=== PATIENT | male | born 1940 | race Caucasian/White ===

== ENCOUNTER 2021-01-21 17:24 | Inpatient (IN) | payer MEDICARE, BC ==
[~2021-01-21] VITALS: Ht 172.7 cm; Wt 87.0 kg
[~2021-01-21 17:24] MED LIST: ASPI-482 PO; EZET10TA20 PO; HYDR12.58 PO; NIAC500T PO; QUIN40TA16 PO
[2021-01-21] MEDS ORDERED: MULT-245 PO (19:44)
[2021-01-21 19:51] VITALS: BP 142/67
[2021-01-21] MEDS ORDERED: MECLIZINE HCL 12.5 MG TABLET. PO PRN (20:45)
[2021-01-21] MEDS ORDERED: LABETALOL 20 MG/4 ML DISP.SYRIN. IVP PRN (20:45)
[2021-01-21] MEDS ORDERED: ASPIRIN 325 MG TABLET PO ONE (20:45)
[2021-01-21] MEDS ORDERED: ATORVASTATIN CALCIUM 40 MG TABLET. PO SCH (21:00)
[2021-01-21 21:17] VITALS: BP 125/74
[2021-01-21 21:18] VITALS: BP 119/74
--- NOTE | 2021-01-21 21:49 | NUR ---
Transferred from [facility] via [facility] with Dx CVA. A/O x 4 on arrival. , Silvia, , at bedside on admission. Denies pain. Admits to feelings of Dizzy. Describes it as having been spun around in circles. Ambulated in room with standby assist. Steady gait. Moves all extremities without difficulty. Speech clear. Face symmetrical. NIH done at bedside with this RN and Charge Nurse. NIH score 0. Swallow intact. Spoke to Dr Munoz. Gave patient 325mg ASA PO and Lipitor 40mg PO as ordered. Applied SCDs. Lipid panel ordered for in the morning. Neuro consult placed. Left message with Dr Ochoa's answer service. Orders in computer for PT/OT/SPEECH consults.
[2021-01-21 22:37] VITALS: BP 135/74
[2021-01-21 22:43] VITALS: BP 141/85
[2021-01-21] MEDS ORDERED: SODIUM CHLORIDE 0.65% NASAL SPRAY 45ML BOTTLE. NS PRN (23:45)
[2021-01-22] VITALS (7 sets, daily range): BP systolic 126–149; BP diastolic 64–89
[2021-01-22 08:14] LABS: CHOLESTEROL/HDL RATIO 3.9
--- NOTE | 2021-01-22 11:19 | RAD ---
EXAM: Brain MRI without contrast. HISTORY: Vertigo. TECHNIQUE: Multiplanar, multisequence magnetic resonance imaging of the brain was performed without c ontrast. COMPARISON: 07/08/2015 FINDINGS: There is no restricted diffusion to suggest acute or subacute infarction. There is no susce ptibility effect to suggest hemorrhage. There is no mass effect or midline shift. There is no hydroce phalus. There are few small focal areas of signal change within the cerebral white matter. There is c erebral volume loss. There is an incidental left choroid fissure cyst. There is a tiny focus of encep halomalacia within the right cerebellum, likely due to chronic infarction. The orbits are unremarkable. There is right maxillary sinus mucosal thickening and there is a left ma xillary sinus mucous retention cyst. There is minimal fluid within the right mastoid air cells. There is an absent flow void within the distal right vertebral artery at the level of the skull base. This reconstitutes within its distal most aspect. There is no calvarial lesion. There is degenerative severiano nge involving the visualized cervical spine. IMPRESSION: 1. Absent flow void within the distal right vertebral artery level of the skull base, likely due to o cclusion or low flow. There is reconstitution of this vessel at the near the basilar artery. This is likely chronic given the absence of an acute infarct. 2. Bilateral cerebral white matter changes, likely due to chronic small vessel disease in a patient o f this age. 3. 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 4. Cerebral volume loss. Electronically signed by: Lisa Beasley MD (01/22/2021 11:17 AM) [id number]
--- NOTE | 2021-01-22 11:39 | PDOC2 ---
NEUROLOGY CONSULT Date of Service DOS: DATE: 01/22/21 TIME: 11:39 Reason for Consult Reason for Consult: Vertigo Referring Physician Referring Physician: Dr. Gordillo Source Source: Chart review, Patient History of Present Illness History of Present Illness The patient is a 80-year-old right-handed male who woke up yesterday morning with a feeling of dizziness. He describes vertigo with the room moving on him. He describes oscillopsia. There was no dysarthria, dysphagia, diplopia, numbness, weakness, headache, or cognitive change. He does have longstanding tinnitus. There is no prior history of stroke, seizure, or head injury. He did not respond to meclizine in the [facility] emergency department and, without consulting neurology, it was decided to transfer him here. Past Medical History Cardiovascular: HTN, Hyperlipidemia Musculoskeletal: Osteoarthritis Past Surgical History Past Surgical History: Total knee replacement (Right knee), Other (Bilateral carpal tunnel, skin cancer) Family History Family History: Cancer, CVA Social History Social History , patel, no tobacco, rare alcohol Current Medications Current Medications Current Medications Aspirin (Karen Aspirin) 325 mg 1X ONCE PO Last administered on 01/21/21at 21:10; Start 01/21/21 at 20:45; Stop 01/21/21 at 20:46; Status DC Meclizine HCl (Antivert) 25 mg PRN Q8HRS PRN PO DIZZINESS; Start 01/21/21 at 20:45 Labetalol HCl (Normodyne Iv Push) 10 mg PRN Q10MIN PRN IVP HYPERTENSION; Start 01/21/21 at 20:45 Atorvastatin Calcium (Lipitor) 40 mg QHS PO Last administered on 01/21/21at 21:10; Start 01/21/21 at 21:00 Sodium Chloride (Saline Mist Nasal) 1 mary PRN Q1HR PRN NS NASAL CONGESTION Last administered on 01/22/21at 00:26; Start 01/21/21 at 23:45 Active Scripts Active Reported Multi Vitamin Daily (Multivitamin) 1 Each Tablet 1 Each PO DAILY Niaspan (Niacin) 500 Mg Tab.er.24h 500 Mg PO HS Quinapril Hcl 40 Mg Tablet 40 Mg PO DAILY Aspir 81 (Aspirin) 81 Mg Tablet.dr 81 Mg PO QODAY Zetia (Ezetimibe) 10 Mg Tablet 10 Mg PO DAILY Allergies Allergies: Coded Allergies: No Known Drug Allergies (Unverified , 07/08/15) ROS Review of System Negative for fever, chills, weight loss, shortness of breath, chest pain, indigestion, hematochezia, melena, and dysuria. Full 14-point review of systems is negative. Physical Exam Physical Examination General: Well-developed, well-nourished white male in no acute distress HEENT: Normocephalic andatraumatic. Tympanic membranes clear.Temporal arteriespulsatile and nontender. Neck: Supple without bruit, no meningismus Musculoskeletal: Stability:see neurologic. Gait exam:see neurologic. Tone:see neurologic.Strength:see neurologic. Neurological: Mental Status:intact, orientation, memory, attention span/concentration, language, fund of knowledge normal. Cranial Nerves:Pupils equal and reactive to light, extraocular movements areintact, visual christian are full to confrontation. Facial sensation is normal. There is no facial asymmetry. Vestibulo-ocular reflex is intact. Palate elevates and tongue protrudes in midline. All other cranial related problems are negative except as mentioned before.Reflexes:2+ and symmetric with flexor plantar responses. Motor:5/5 strength with normal tone and bulk. Coordination:Finger-nose finger and abyp-gx-vwqd testing are normal. Rapid alternating movements and fine finger movements are intact. Gait:Normal, including tandem. Sensory:Normal pinprick, vibration, light touch, proprioception. Vitals VITALS Vital Signs Date Time Temp Pulse Resp B/P (MAP) Pulse Ox O2 Delivery O2 Flow Rate FiO2 01/22/21 08:10 96 145/83 (103) 01/22/21 08:00 Room Air 01/22/21 07:00 97.8 22 95 97.8 Labs Labs Laboratory Tests Test 01/22/21 06:50 Triglycerides Level 81 mg/dL (0-150) Cholesterol Level 178 mg/dL (0-200) LDL Cholesterol, Calculated 116 mg/dL (0-100) VLDL Cholesterol, Calculated 16 mg/dL (0-40) Non-HDL Cholesterol Calculated 132 mg/dL (0-129) HDL Cholesterol 46 mg/dL (40-60) Cholesterol/HDL Ratio 3.9 Laboratory Tests Test 01/22/21 06:50 Triglycerides Level 81 mg/dL (0-150) Cholesterol Level 178 mg/dL (0-200) LDL Cholesterol, Calculated 116 mg/dL (0-100) VLDL Cholesterol, Calculated 16 mg/dL (0-40) Non-HDL Cholesterol Calculated 132 mg/dL (0-129) HDL Cholesterol 46 mg/dL (40-60) Cholesterol/HDL Ratio 3.9 Images Images Brain MRI without contrast. HISTORY: Vertigo. TECHNIQUE: Multiplanar, multisequence magnetic resonance imaging of the brain was performed without contrast. COMPARISON: 07/08/2015 FINDINGS: There is no restricted diffusion to suggest acute or subacute infarction. There is no susceptibility effect to suggest hemorrhage. There is no mass effect or midline shift. There is no hydrocephalus. There are few small focal areas of signal change within the cerebral white matter. There is cerebral volume loss. There is an incidental left choroid fissure cyst. There is a tiny focus of encephalomalacia within the right cerebellum, likely due to chronic infarction. The orbits are unremarkable. There is right maxillary sinus mucosal thickening and there is a left maxillary sinus mucous retention cyst. There is minimal fluid within the right mastoid air cells. There is an absent flow void within the distal right vertebral artery at the level of the skull base. This reconstitutes within its distal most aspect. There is no calvarial lesion. There is degenerative change involving the visualized cervical spine. IMPRESSION: 1. Absent flow void within the distal right vertebral artery level of the skull base, likely due to occlusion or low flow. There is reconstitution of this vessel at the near the basilar artery. This is likely chronic given the absence of an acute infarct. 2. Bilateral cerebral white matter changes, likely due to chronic small vessel disease in a patient of this age. 3. 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 4. Cerebral volume loss. CT head, 01/21, [facility]: There is no acute or subacute extra-axial or intraparenchymal hemorrhage. There is no mass effect or midline shift. There is no hydrocephalus. There are areas of decreased attenuation within the cerebral white matter, nonspecific and likely related to chronic small vessel disease. There is cerebral volume loss. There is an incidental left choroid fissure cyst. There is right maxillary sinus wall thickening and mucosal thickening due to chronic sinusitis. The orbits and mastoid air cells are unremarkable. There is no calvarial lesion. IMPRESSION: 1. No acute intracranial finding. Note is made that MRI is more sensitive for acute infarction. 2. Bilateral cerebral white matter changes, most commonly due to chronic small vessel disease in a patient of this age. Assessment/Plan Assessment/Plan Impression: Peripheral vertigo, no evidence of stroke either on bedside examination or on the MRI which has already been done. 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 Recommendations: MRI of the brain, already done He does not need the full stroke pathway His symptoms have resolved, no further neurological interventions are required. He has taken aspirin in the past, caused nosebleeds, he is willing to take 81 mg daily Intolerance of statin in the past, continue Zetia and niacin. Okay for discharge Follow-up with neurology as needed. Thank you for letting me help with the patient's care. DYLAN MEDRANO MD Jan 22, 2021 11:39
--- NOTE | 2021-01-22 12:15 | NUR ---
SS following for discharge planning. SS reviewed pt chart and discussed with pt RN. Pt is from home with spouse and is currently on room air. PT/OT/ST ordered. PT/OT recommended home independent. Pt had Brain MRI today. Discharge plan is to home when medically ready. SS will continue to follow for discharge planning.
--- NOTE | 2021-01-22 12:17 | PDOC1 ---
History and Physical Date of Admission Date of Admission DATE: 01/22/21 TIME: 12:19 Identification/Chief Complaint Chief Complaint dizziness History of Present Illness History of Present Illness There was no dysarthria, dysphagia, diplopia, numbness, weakness, headache, or cognitive change. He does have longstanding tinnitus. There is no prior history of stroke, seizure, or head injury. He did not respond to meclizine in the [facility] emergency department Past Medical History Past Medical History Past Medical History Cardiovascular: HTN, Hyperlipidemia Musculoskeletal: Osteoarthritis Past Surgical History Past Surgical History: Total knee replacement (Right knee), Other (Bilateral carpal tunnel, skin cancer) Family History Family History: Cancer, CVA, htn Social History Social History , patel, no tobacco, rare alcohol Cardiovascular: HTN, Hyperlipidemia Musculoskeletal: Osteoarthritis Past Surgical History Past Surgical History: Total knee replacement (Right knee), Other (Bilateral carpal tunnel, skin cancer) Family History Family History: Hypertension Social History Smoke: No ALCOHOL: none Drugs: None Current Medications Current Medications Current Medications Aspirin (Karen Aspirin) 325 mg 1X ONCE PO Last administered on 01/21/21at 21:10; Start 01/21/21 at 20:45; Stop 01/21/21 at 20:46; Status DC Meclizine HCl (Antivert) 25 mg PRN Q8HRS PRN PO DIZZINESS; Start 01/21/21 at 20:45 Labetalol HCl (Normodyne Iv Push) 10 mg PRN Q10MIN PRN IVP HYPERTENSION; Start 01/21/21 at 20:45 Atorvastatin Calcium (Lipitor) 40 mg QHS PO Last administered on 01/21/21at 21:10; Start 01/21/21 at 21:00 Sodium Chloride (Saline Mist Nasal) 1 mary PRN Q1HR PRN NS NASAL CONGESTION Last administered on 01/22/21at 00:26; Start 01/21/21 at 23:45 Active Scripts Active Reported Multi Vitamin Daily (Multivitamin) 1 Each Tablet 1 Each PO DAILY Niaspan (Niacin) 500 Mg Tab.er.24h 500 Mg PO HS Quinapril Hcl 40 Mg Tablet 40 Mg PO DAILY Aspir 81 (Aspirin) 81 Mg Tablet.dr 81 Mg PO QODAY Zetia (Ezetimibe) 10 Mg Tablet 10 Mg PO DAILY Allergies Allergies: Coded Allergies: No Known Drug Allergies (Unverified , 07/08/15) ROS General: No: Chills, Night Sweats, Fatigue, Malaise, Appetite, Other PSYCHOLOGICAL ROS: No: Anxiety, Behavioral Disorder, Concentration difficultie, Decreased libido, Depression, Disorientation, Hallucinations, Hostility, Irritablity, Memory difficulties, Mood Swings, Obsessive thoughts, Physical abuse, Sexual abuse, Sleep disturbances, Suicidal ideation, Other Eyes: No Blurry vision, No Decreased vision, No Double vision, No Dry eyes, No Excessive tearing, No Eye Pain, No Itchy Eyes, No Loss of vision, No Photophobia, No Scotomata, No Uses contacts, No Uses glasses, No Other HEENT: No: Heacaches, Visual Changes, Hearing change, Nasal congestion, Nasal discharge, Oral lesions, Sinus pain, Sore Throat, Epistaxis, Sneezing, Snoring, Tinnitus, Vertigo, Vocal changes, Other ALLERGY AND IMMUNOLOGY: No: Hives, Insect Bite Sensitivity, Itchy/Watery Eyes, Nasal Congestion, Post Nasal Drip, Seasonal Allergies, Other Hematological and Lymphatic: No: Bleeding Problems, Blood Clots, Blood Transfusions, Brusing, Night Sweats, Pallor, Swollen Lymph Nodes, Other ENDOCRINE: No: Breast Changes, Galactorrhea, Hair Pattern Changes, Hot Flashes, Malaise/lethargy, Mood Swings, Palpitations, Polydipsia/polyuria, Skin Changes, Temperature Intolerance, Unexpected Weight Changes, Other Breast: No New/Changing Breast Lumps, No Nipple changes, No Nipple discharge, No Other Respiratory: No: Cough, Hemoptysis, Orthopnea, Pleuritic Pain, Shortness of breath, SOB with excertion, Sputum Changes, Stridor, Tachypnea, Wheezing, Other Cardiovascular: No Chest Pain, No Palpitations, No Orthopnea, No Paroxysmal Noc. Dyspnea, No Edema, No Lt Headedness, No Other Gastrointestinal: No Nausea, No Vomiting, No Abdominal Pain, No Diarrhea, No Constipation, No Melena, No Hematochezia, No Other Genitourinary: No Dysuria, No Frequency, No Incontinence, No Hematuria, No Retention, No Discharge, No Urgency, No Pain, No Flank Pain, No Other, No , No , No , No , No , No , No Musculoskeletal: No Gait Disturbance, No Joint Pain, No Joint Stiffness, No Joint Swelling, No Muscle Pain, No Muscular Weakness, No Pain In:, No Swelling In:, No Other Neurological: Yes Dizziness; No Behavorial Changes, No Bowel/Bladder ControlChng, No Confusion, No Gait Disturbance, No Headaches, No Impaired Coord/balance, No Memory Loss, No Numbness/Tingling, No Seizures, No Speech Problems, No Tremors, No Visual Changes, No Weakness, No Other Skin: No Dry Skin, No Eczema, No Hair Changes, No Lumps, No Mole Changes, No Mottling, No Nail Changes, No Pruritus, No Rash, No Skin Lesion Changes, No Other, No Acne Physical Exam General: Alert, Oriented X3, Cooperative, No acute distress HEENT: PERRLA Lungs: Clear to auscultation, Normal air movement Heart: RRR, no gallops, no murmurs Breasts: Not examined Abdomen: Normal bowel sounds, Soft, No tenderness, No hepatosplenomegaly, No masses Rectal Exam: not examined PELVIC: Examination not indicated Extremities: No cyanosis Skin: No breakdown, No significant lesion Neuro: Normal speech, Strength at 5/5 X4 ext, Sensation intact, Cranial nerves 3-12 NL Psych/Mental Status: Mental status NL, Mood NL Vitals Vitals Vital Signs Date Time Temp Pulse Resp B/P (MAP) Pulse Ox O2 Delivery O2 Flow Rate FiO2 01/22/21 11:00 98.0 86 18 133/70 (91) 96 Room Air 98.0 Labs Labs Laboratory Tests Test 01/22/21 06:50 Triglycerides Level 81 mg/dL (0-150) Cholesterol Level 178 mg/dL (0-200) LDL Cholesterol, Calculated 116 mg/dL (0-100) VLDL Cholesterol, Calculated 16 mg/dL (0-40) Non-HDL Cholesterol Calculated 132 mg/dL (0-129) HDL Cholesterol 46 mg/dL (40-60) Cholesterol/HDL Ratio 3.9 Laboratory Tests Test 01/22/21 06:50 Triglycerides Level 81 mg/dL (0-150) Cholesterol Level 178 mg/dL (0-200) LDL Cholesterol, Calculated 116 mg/dL (0-100) VLDL Cholesterol, Calculated 16 mg/dL (0-40) Non-HDL Cholesterol Calculated 132 mg/dL (0-129) HDL Cholesterol 46 mg/dL (40-60) Cholesterol/HDL Ratio 3.9 Images Images EXAM: Brain MRI without contrast. HISTORY: Vertigo. TECHNIQUE: Multiplanar, multisequence magnetic resonance imaging of the brain was performed without contrast. COMPARISON: 07/08/2015 FINDINGS: There is no restricted diffusion to suggest acute or subacute infarction. There is no susceptibility effect to suggest hemorrhage. There is no mass effect or midline shift. There is no hydrocephalus. There are few small focal areas of signal change within the cerebral white matter. There is cerebral volume loss. There is an incidental left choroid fissure cyst. There is a tiny focus of encephalomalacia within the right cerebellum, likely due to chronic infarction. The orbits are unremarkable. There is right maxillary sinus mucosal thickening and there is a left maxillary sinus mucous retention cyst. There is minimal fluid within the right mastoid air cells. There is an absent flow void within the distal right vertebral artery at the level of the skull base. This reconstitutes within its distal most aspect. There is no calvarial lesion. There is degenerative change involving the visualized cervical spine. IMPRESSION: 1. Absent flow void within the distal right vertebral artery level of the skull base, likely due to occlusion or low flow. There is reconstitution of this vessel at the near the basilar artery. This is likely chronic given the absence of an acute infarct. 2. Bilateral cerebral white matter changes, likely due to chronic small vessel disease in a patient of this age. 3. 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 4. Cerebral volume loss. 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 Cerebral volume loss. plan aspirin 81 mg daily Zetia and niacin. Okay for discharge neurology consulted mri head reviewed Justifications for Admission Other Justification JOSEPH HERNANDEZ MD Jan 22, 2021 12:17
[2021-01-22] MEDS ORDERED: ACETAMINOPHEN 325 MG TABLET. PO PRN (12:45)
[2021-01-22] MEDS ORDERED: ALBUTEROL SULFATE 2.5 MG/3 ML NEBU. NEB PRN (12:45)
[2021-01-22] MEDS ORDERED: DOCUSATE SODIUM 100 MG CAPSULE. PO PRN (12:45)
[2021-01-22] MEDS ORDERED: ONDANSETRON PF 4 MG/2 ML VIAL. IV PRN (12:45)
[2021-01-22] MEDS ORDERED: ENOXAPARIN 40 MG/0.4 ML SYRINGE. SQ SCH (12:45)
[2021-01-22] MEDS ORDERED: guaiFENesin ORAL 200 MG/10 ML LIQUID. PO PRN (12:45)
--- NOTE | 2021-01-22 13:40 | RAD ---
EXAM: Carotid Doppler sonogram. HISTORY: Cerebral infarction. Atherosclerosis. TECHNIQUE: Gutierrez scale and color Doppler sonographic evaluation of the neck with spectral waveform eber lysis was performed and static images are submitted for review. FINDINGS: There is mild atherosclerotic plaque involving the carotid bifurcations The peak systolic velocity within the right common carotid artery is 111 cm/sec. The peak systolic ve locity within the right internal carotid artery is 79 cm/sec and the end diastolic velocity within th e right internal carotid artery is 16 cm/sec. The right ICA/CCA ratio is 0.85. The peak systolic velocity within the left common carotid artery is 96 cm/sec. The peak systolic [place] within the left internal carotid artery is 77 cm/sec and the end diastolic velocity within the l eft internal carotid artery is 27 cm/sec. The left ICA/CCA ratio is 1.0. There is normal antegrade flow within both vertebral arteries. IMPRESSION: No Doppler evidence of greater than 50 percent stenosis involving the internal carotid arteries. PQRS Compliance Statement - Stenosis calculations for CT, MR and conventional angiography are based u jessie measurement of the distal ICA diameter in accordance with the NASCET methodology. Stenosis calcu lations for carotid ultrasound studies are derived from validated velocity criteria which are known t o correlate with the NASCET methodology. Electronically signed by: Lisa Beasley MD (01/22/2021 1:37 PM) [id number]
--- NOTE | 2021-01-22 13:46 | HP ---
ADMIT DATE: 01/21/2021 ADMISSION HISTORY , observation and d/c same day CHIEF COMPLAINT: Dizziness. HISTORY OF PRESENT ILLNESS: This 80-year-old pleasant male was transferred from [facility] ER with complaints of dizziness. He does have a long history of tinnitus, no prior history of known stroke or head injury. He was seen by the ER doctor there and then transferred here. He states that he feels better today. He has been seen by Neurology and cleared for discharge. His would like a carotid Doppler study, however, his MRI shows a very tiny small cerebellar infarct, which is old. PAST MEDICAL HISTORY: Significant for hypertension, hyperlipidemia, previous knee replacement, bilateral carpal tunnel syndrome. FAMILY HISTORY: Positive for cancer and hypertension. 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 No tobacco use, rare alcohol use. REVIEW OF SYSTEMS: Denies shortness of breath, chest pain. His dizziness is better today. Denies numbness or tingling. Above normal symptoms for carpal tunnel. Denies exertional angina. Denies vomiting, melena, hematochezia, weight change, dysuria, polyuria, polydipsia. A 14-point review of systems otherwise negative. PHYSICAL EXAMINATION: GENERAL: He was alert, oriented white male, in no acute distress. NECK: Supple. HEENT: Throat and pharynx are clear. NEUROLOGIC: Cranial nerves 2-12 are grossly intact. He moves all extremities well. 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 Extraocular muscles are intact. Muscles of mastication are symmetric bilaterally. Speech is normal without slurred speech. EXTREMITIES: Without cyanosis. SKIN: Without significant lesion. He is cooperative, alert and oriented. CARDIOVASCULAR: Regular rate and rhythm without murmur, S3 or S4. ABDOMEN: Soft, obese without tenderness. Bowel sounds are normal. LABORATORY DATA: His cholesterol is 178, LDL cholesterol 116. MRI of the brain shows no evidence of acute or subacute infarction. No mass effect, no hydrocephalus. There is an absent flow in the distal right vertebral artery at the level of the skull base, likely due to old occlusion. There is reconstitution of the basilar artery. This is likely chronic. There is a tiny chronic infarct within the right cerebellum and the cerebellar volume loss consistent with age. ASSESSMENT: 1. Vertigo. 2. Possible transient ischemic attack. 3. 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 4. Cerebellar volume loss secondary to age. 5. Obesity. PLAN: Continue aspirin 81 mg daily. Continue Zetia, niacin. He has been cleared for discharge per Neurology. MRI of the head was reviewed. Total time spent with the patient exam, chart review, 65 minutes, greater than 50% of time was spent with the patient exam, chart review, the patient care, coordination and we will await carotid Doppler study today. He will see his primary care doctor in 2-3 weeks and call with any symptoms, which brought him to seek medical attention. d/c home today, see pcp next week JOSEPH HERNANDEZ MD DR: CECILIA/nikolay JOB#: [id number] / [id number] FARAZ
[2021-01-22] MEDS ORDERED: DOCU-153 PO (14:48)
[2021-01-22] MEDS ORDERED: MECL12.582 PO (14:48)
[2021-01-22] MEDS ORDERED: ATOR40TA59 PO (14:48)
--- NOTE | 2021-01-22 15:53 | NUR ---
Discharge Note: MARIO ARREGUNI Discharge instructions and discharge home medications reviewed with Patient and a copy given. All questions have been answered and understanding verbalized. The following instructions and handouts were given: Atorvastatin, Docusate, Meclizine, Stroke prevention, Dizziness, hypertension. Patient discharged to home with self care via and private vehicle. IV out and monitor off, placed at nursing station.
== END 2021-01-22 15:56 | disposition home or self-care (01) | DRG 69 ==
LOC: 2 SOUTH 19:35
PROVIDERS: ADMIT Internal Medicine; ATTEND Internal Medicine
DX: G45.9 Transient cerebral ischemic attack, unspecified (principal); E66.9 Obesity, unspecified; E78.5 Hyperlipidemia, unspecified; I10 Essential (primary) hypertension; I73.9 Peripheral vascular disease, unspecified; J32.0 Chronic maxillary sinusitis; M19.90 Unspecified osteoarthritis, unspecified site; Z96.651 Presence of right artificial knee joint; G56.03 Carpal tunnel syndrome, bilateral upper limbs; Z79.82 Long term (current) use of aspirin; Z82.3 Family history of stroke; Z82.49 Family history of ischemic heart disease and other diseases of the circulatory system; Z85.828 Personal history of other malignant neoplasm of skin; Z68.29 Body mass index [BMI] 29.0-29.9, adult
CPT/HCPCS: 36415; 70551; 80061; 93880; J1650; 92610-GN; G0378

== ENCOUNTER 2022-03-09 10:22 | Inpatient (IN) | payer MEDICARE, BC ==
[2022-03-09] VITALS (8 sets, daily range): BP systolic 110–137; BP diastolic 66–83
[~2022-03-09] VITALS: Ht 172.7 cm; Wt 85.0 kg
[~2022-03-09 10:22] MED LIST changes: +ATOR40TA59 PO; +DOCU-148 PO; +MECL12.582 PO; +MULT-245 PO
[2022-03-09] MEDS ORDERED: UBID100C26 PO (11:05)
[2022-03-09] MEDS ORDERED: NITR0.4T24 SL (11:05)
[2022-03-09] MEDS ORDERED: PANT40TA77 PO (11:05)
[2022-03-09] MEDS ORDERED: [UNRECOGNIZED DRUG - CODE] PO (11:05)
[2022-03-09] MEDS ORDERED: SUCR1TAB35 PO (11:05)
[2022-03-09] MEDS ORDERED: MECL-75 PO (11:05)
[2022-03-09 11:16] LABS: HEMATOCRIT 46.5 % (39.0-53.0); HEMOGLOBIN 15.8 g/dL (13.0-17.5); RED BLOOD COUNT 5.2 x10^6/uL (4.30-5.70); RED CELL DISTRIBUTION WIDTH 13.5 % (11.5-14.5); WHITE BLOOD COUNT 5.5 x10^3/uL (4.0-11.0)
[2022-03-09 11:26] LABS: CALCIUM 9.2 mg/dL (8.5-10.1); CREATININE 1.1 mg/dL (0.7-1.3); GFR 64.4; POTASSIUM 4.1 mmol/L (3.5-5.1)
[2022-03-09 11:28] LABS: PROTHROMBIN TIME PATIENT 13.4 SEC (11.7-14.0)
[2022-03-09] MEDS ORDERED: LIDOCAINE 1% PF 2 ML VIAL. ONE ×2 (12:36→12:44)
[2022-03-09] MEDS ORDERED: IODIXANOL 320 MG/ML 100 ML VIAL. ONE (12:36)
[2022-03-09] MEDS ORDERED: NITROGLYCERIN 200 MCG/2 ML SYRINGE FOR CATH/VASC LAB. ONE ×2 (12:41→12:47)
[2022-03-09] MEDS ORDERED: VERAPAMIL 5 MG/2 ML VIAL. ONE ×2 (12:41→12:44)
[2022-03-09] MEDS ORDERED: HEPARIN for IV BOLUS 10,000 UNIT/10 ML VIAL. ONE (12:41)
[2022-03-09] MEDS ORDERED: MIDAZOLAM HCL/PF 2 MG/2 ML VIAL. ONE (12:41)
[2022-03-09] MEDS ORDERED: fentaNYL PF VIAL 100 MCG/2 ML VIAL ONE (12:41)
[2022-03-09] MEDS ORDERED: LIDOCAINE 1% Multi-Dose 20 ML VIAL. ONE (12:43)
[2022-03-09] MEDS: IV 1/2 NORMAL SALINE 1,000 ML IV SCH ×2 (12:50→23:30)
[2022-03-09] MEDS ORDERED: LIDOCAINE 1% PF 2 ML VIAL. INJ ONE (13:00)
[2022-03-09] MEDS ORDERED: MIDAZOLAM HCL/PF 2 MG/2 ML VIAL. IV ONE (13:00)
[2022-03-09] MEDS ORDERED: NITROGLYCERIN 200 MCG/2 ML SYRINGE FOR CATH/VASC LAB. IART ONE (13:00)
[2022-03-09] MEDS ORDERED: fentaNYL PF VIAL 100 MCG/2 ML VIAL IV ONE (13:00)
[2022-03-09] MEDS ORDERED: IODIXANOL 320 MG/ML 100 ML VIAL. IART ONE (13:00)
[2022-03-09] MEDS ORDERED: CONTRAST GIVEN. MC PRN (13:00)
[2022-03-09] MEDS ORDERED: HEPARIN for IV BOLUS 10,000 UNIT/10 ML VIAL. IART ONE (13:00)
[2022-03-09] MEDS ORDERED: VERAPAMIL 5 MG/2 ML VIAL. IART ONE (13:00)
--- NOTE | 2022-03-09 13:20 | PDOC ---
MODERATE SEDATION ASSESSMENT RISKS/ALTERNATIVES Risks/Alternatives Risks and alternatives of this type of sedation and procedure discussed with: RISK/ALTERNATIVES: Patient H & P ON CHART H & P H & P on chart and reviewed for co-morbid conditions and appropriate labs. H&P ON CHART: Yes STATUS PREG STATUS ASSESSED: N/A MEDS/ALLERGIES REVIEWED Meds/Allergies Reviewed Medications and Allergies including time and route of recently administered narcotics and sedatives. MEDS/ALLERGIES REVIEWED: Yes ASA RATING ASA RATING: II AIRWAY ASSESSMENT Airway Assessment Airway patency, oral function limitations, presence of caps, crowns, dentures, partials, and ability to extend neck assessed. AIRWAY ASSESSMENT: Yes MALLAMPATI SCORE MALLAMPATI SCORE: II PRE-SEDATION ASSESSMENT PRE-SEDATION ASSESSMENT: Yes GREER ROBERTS MD Mar 09, 2022 13:19
[2022-03-09] MEDS ORDERED: CLOPIDOGREL BISULFATE 75 MG TABLET PO ONE (13:30)
[2022-03-09] MEDS ORDERED: CLOPIDOGREL BISULFATE 75 MG TABLET ONE ×2 (14:13→14:18)
--- NOTE | 2022-03-09 14:31 | NUR ---
Nicole RN gave report to Sissy GARRIDO on . Patient had left heart catheterization with Dr. Hendricks today and will require CSI for an intervention tomorrow. Patient had procedure done through right radial site and TR band in place with 9cc air and armboard in place. Patient ate lunch and took 300mg po Plavix before being transported to room 665. at bedside with patient and no problems noted.
--- NOTE | 2022-03-09 14:55 | CARD ---
MR#: [id number] Date of Study: 03/09/2022 Ordering Physician: GREER HENDRICKS, Referring Physician: GREER HENDRICKS Tech: RT Miley(R) APPROVED REPORT Technologist: Nette Barcenas RT(R) Nurse: Quyen Lopez RN Procedure(s) performed: Left heart catheterization, selective coronary angiography via right transrad ial approach MODERATE SEDATION TIME: 30 MINUTES FLUORO TIME: 4.1 MIN DOSE: 62 GYCM2 CONTRAST: 80CC VISI INDICATION The indication(s) include : unstable angina . [facility] Clinical Frailty Scale [facility] Clinical Frailty Scale: Managing Well Heart Failure Heart Failure: No CASE TECHNIQUE IV conscious sedation was used throughout procedure with appropriate monitoring and was performed in the presence of a registered nurse who was an independent trained observer other than the physician p erforming the procedure. During this case, Fluoroscopy and low osmolar contrast were used for imaging . Specimen(s) Removed: No Estimated Blood loss: 15 cc's. PROCEDURE NARRATIVE After explaining the risks, benefits and alternative options, informed consent was obtained from ap ent. Patient was brought to the cardiac Manual Lathe Machinist and right wrist was prepped and draped in the usual fashion after confirming a positive modified Gama's test. Arterial access was obtained in the righ t radial artery and a 6 Wolof sheath was inserted. 6 Wolof Austin catheter was used to perform kenny ective angiography of the left and right coronary arteries. LVEDP and transaortic gradients were fanny sured. Patient tolerated the procedure well. Hemostasis was achieved using TR band. There were no immediate complications. The following findings were noted. FINDINGS 1. Hemodynamics: Left ventricular end-diastolic pressure of 7 mmHg. No pullback gradient across the aortic valve. 2. Coronary angiography: a. The left main coronary artery arose from the left sinus of Valsalva, gave rise to the left anteri or descending and left circumflex arteries and did not show any significant stenosis. b. The left anterior descending artery showed a calcified and eccentric 90% stenosis involving mid s egment. c. The left circumflex artery did not show any significant stenosis. d. The right coronary artery was a large and dominant vessel arising from the right sinus of Valsalv a that showed heavily calcified 90% stenosis involving the proximal segment and another heavily calci fied 95 to 99% stenosis in the midsegment. Conclusion Severe two-vessel coronary artery disease involving left anterior descending and right coronary arter ies as described above. Recommendations Due to heavy calcification, we will plan for orbital atherectomy/PCI/stent placement, probably with t emporary transvenous pacemaker support. Signed by : Greer Hendricks, Electronically Approved : 03/09/2022 14:55:01
--- NOTE | 2022-03-09 16:45 | CARD ---
MR#: [id number] Date of Study: 03/09/2022 Ordering Physician: GREER HENDRICKS, Referring Physician: GREER HENDRICKS, Tech: Dee Mayberry RDCS,T APPROVED REPORT EXAM: Two-dimensional and M-mode echocardiogram with Doppler and color Doppler. Other Information Quality : AverageHR: 86bpm Rhythm : NNSR INDICATION Cardiac Disease: CAD Angia 2D DIMENSIONS Left Atrium(2D)3.2 (1.6-4.0cm)IVSd1.3 (0.7-1.1cm) Aortic Root(2D)3.2 (2.0-3.7cm)LVDd4.3 (3.9-5.9cm) LVOT Diameter2.1 (1.8-2.4cm)PWd1.1 (0.7-1.1cm) LVDs3.5 (2.5-4.0cm)FS (%) 20.1 % SV35.3 ml Aortic Valve AoV Peak Bentley.120.3cm/sAoV VTI24.3cm AO Peak GR.5.8mmHgAO Mean GR.4mmHg Tricuspid Valve TR P. Kpmjbnfz85np/sTR Peak Gr.4mmHg Pulmonary Vein S1 Lvszegab06.0cm/sD2 Qomeajsy00.4cm/s PVa [id number] LEFT VENTRICLE The left ventricle is normal size. There is borderline to mild concentric left ventricular hypertroph y. Normal left ventricular systolic function. The Ejection Fraction is 55%. No regional wall motion a bnormalities noted. Transmitral Doppler flow pattern is Grade I-abnormal relaxation pattern. No left ventricle thrombus noted on this study. There is no ventricular septal defect visualized. There is no left ventricular aneurysm. There is no mass noted in the left ventricle. RIGHT VENTRICLE The right ventricle is normal size. There is normal right ventricular wall thickness. The right ventr icular systolic function is normal. ATRIA The left atrium size is normal. The right atrium size is normal. The interatrial septum is intact wit h no evidence for an atrial septal defect or patent foramen ovale as noted on 2-D or Doppler imaging. AORTIC VALVE The aortic valve is normal in structure and function. No aortic regurgitation is present. There is no aortic valvular stenosis. There is no aortic valvular vegetation. MITRAL VALVE The mitral valve is normal in structure and function. There is no evidence of mitral valve prolapse. There is no mitral valve stenosis. There is no mitral valve regurgitation noted. TRICUSPID VALVE The tricuspid valve is normal in structure and function. Trace tricuspid valve regurgitation. There i s no tricuspid valve prolapse or vegetation. There is no tricuspid valve stenosis. PULMONIC VALVE The pulmonic valve is not well visualized. There is no pulmonic valvular regurgitation. There is no p ulmonic valvular stenosis. GREAT VESSELS The aortic root is normal in size. The ascending aorta is normal in size. The pulmonary artery is nor mal. The IVC is normal in size and collapses >50% with inspiration. PERICARDIAL EFFUSION There is no pleural effusion. There is no evidence of significant pericardial effusion. Critical Notification Critical Value: No <Conclusion> Technically difficult study. Normal left ventricular systolic function. The Ejection Fraction is 55%. Trace tricuspid valve regurgitation. There is no evidence of significant pericardial effusion. Signed by : Greer Hendricks, Electronically Approved : 03/09/2022 16:45:04
[2022-03-09] MEDS ORDERED: fentaNYL PF VIAL 100 MCG/2 ML VIAL IVP PRN (23:15)
[2022-03-09] MEDS ORDERED: HEPARIN for IV BOLUS 10,000 UNIT/10 ML VIAL. IV PRN (23:15)
[2022-03-09] MEDS ORDERED: HEPARIN 25,000UTS/250ML PREMIX 250 ML IV PRN (23:15)
--- NOTE | 2022-03-09 23:17 | NUR ---
PT C/O CHEST PRESSURE, DR [place] NOTIFIED, NEW ORDERS RECEIVED, SEE ORDERS, BP- 118/83, P-83 WILL CONT TO MONITOR PT STATUS AND SAFETY. PMRN
[2022-03-09] MEDS ORDERED: ANTI-COAG MONITOR BY PHARMACY. MC PRN (23:30)
[2022-03-10] VITALS (7 sets, daily range): BP systolic 111–137; BP diastolic 63–91
--- NOTE | 2022-03-10 | EKG ---
[facility] [address] [place] [address] Test Date: 2022-03-09 Test Time: 23:54:17 Pat Name: MARIO ARREGUIN Department: Room: [facility] Gender: M Acetylene Burner: KRISSY : 1940 Requested By: [place] Order Number: [id number] Reading MD: Hussein Masters Measurements Intervals [place] Rate: 80 P: 31 IL: 208 QRS: -16 QRSD: 70 T: 11 QT: 360 QTc: 419 Interpretive Statements SINUS RHYTHM LEFTWARD AXIS Electronically Signed On 03-11-2022 16:47:20 CDT by Hussein Masters
[2022-03-10 06:22] LABS: HEMATOCRIT 45.6 % (39.0-53.0); HEMOGLOBIN 15.5 g/dL (13.0-17.5); RED BLOOD COUNT 5.06 x10^6/uL (4.30-5.70); RED CELL DISTRIBUTION WIDTH 13.5 % (11.5-14.5); WHITE BLOOD COUNT 6.1 x10^3/uL (4.0-11.0)
[2022-03-10] MEDS ORDERED: ASPIRIN ENTERIC COATED 325 MG TABLET.DR. PO SCH (08:00)
[2022-03-10] MEDS ORDERED: CLOPIDOGREL BISULFATE 75 MG TABLET PO SCH (08:00)
[2022-03-10] MEDS: IV 1/2 NORMAL SALINE 1,000 ML IV SCH (09:30)
[2022-03-10] MEDS ORDERED: LIDOCAINE 1% Multi-Dose 20 ML VIAL. ONE (10:00)
[2022-03-10] MEDS ORDERED: IODIXANOL 320 MG/ML 100 ML VIAL. ONE ×2 (11:10→13:41)
[2022-03-10] MEDS ORDERED: BIVALIRUDIN 250 MG VIAL. IVP ONE ×4 (11:12→12:45)
[2022-03-10] MEDS ORDERED: fentaNYL PF VIAL 100 MCG/2 ML VIAL ONE ×2 (11:12→13:33)
[2022-03-10] MEDS ORDERED: MIDAZOLAM HCL/PF 5 MG/5 ML VIAL. ONE (11:12)
[2022-03-10] MEDS ORDERED: diphenhydrAMINE 50 MG/ML VIAL ONE (11:36)
[2022-03-10] MEDS ORDERED: diphenhydrAMINE 50 MG/ML VIAL IVP ONE (12:00)
[2022-03-10] MEDS ORDERED: MIDAZOLAM HCL/PF 5 MG/5 ML VIAL. IV ONE (12:00)
[2022-03-10] MEDS ORDERED: IODIXANOL 320 MG/ML 100 ML VIAL. IART ONE (12:00)
[2022-03-10] MEDS ORDERED: fentaNYL PF VIAL 100 MCG/2 ML VIAL IV ONE (12:00)
[2022-03-10] MEDS ORDERED: LIDOCAINE 1% Multi-Dose 20 ML VIAL. INJ ONE (12:00)
[2022-03-10] MEDS ORDERED: NITROGLYCERIN 200 MCG/2 ML SYRINGE FOR CATH/VASC LAB. ONE (13:06)
[2022-03-10] MEDS ORDERED: NITROGLYCERIN 200 MCG/2 ML SYRINGE FOR CATH/VASC LAB. ICAR ONE (13:15)
[2022-03-10] MEDS ORDERED: ASPIRIN 325 MG TABLET PO ONE (14:00)
[2022-03-10] MEDS ORDERED: ASPIRIN 325 MG TABLET ONE (14:00)
[2022-03-10] MEDS ORDERED: CLOPIDOGREL BISULFATE 75 MG TABLET PO ONE (14:00)
[2022-03-10] MEDS ORDERED: CLOPIDOGREL BISULFATE 75 MG TABLET ONE (14:00)
--- NOTE | 2022-03-10 16:04 | NUR ---
SS following for discharge planning. SS reviewed pt chart and discussed with pt RN. Pt is from home with spouse and is currently on room air. Cardiology following. Pt had heart cath on 03/09/2022. SS will continue to follow for discharge planning.
[2022-03-11 03:09] VITALS: BP 119/64
[2022-03-11 07:00] VITALS: BP 125/73
--- NOTE | 2022-03-11 08:49 | CARD ---
MR#: [id number] Date of Study: 03/10/2022 Ordering Physician: GREER HENDRICKS, Referring Physician: GREER HENDRICKS, Tech: RT Tomasa(R) APPROVED REPORT Technologist: RT Tomasa(R) Nurse: Nicole Moreno RN Procedure(s) performed: 1. Left heart catheterization and selective coronary angiography 2. Successful complex orbital atherectomy/PCI/drug-eluting stent placement to left anterior descendi ng and right coronary arteries 3. Insertion of temporary transvenous pacemaker with removal at the end of procedure FLUORO TIME:65.2 MIN DOSE: 183 Gycm2 Contrast:183ml Mod Sed:169 MIN INDICATION The indication(s) include : 81-year-old male presented with unstable angina and underwent cardiac cat heterization on 03/09/2022 that showed heavily calcified 90% stenosis involving left anterior descendi ng artery and heavily calcified 90% stenosis involving the proximal segment and 95 to 99% stenosis in volving the mid segment of right coronary artery. He presented today for complex orbital atherectomy/ PCI/drug-eluting stent placement.. [facility] Clinical Frailty Scale [facility] Clinical Frailty Scale: Managing Well Heart Failure Heart Failure: No CASE TECHNIQUE IV conscious sedation was used throughout procedure with appropriate monitoring and was performed in the presence of a registered nurse who was an independent trained observer other than the physician p erforming the procedure. During this case, Fluoroscopy and low osmolar contrast were used for imaging . Specimen(s) Removed: No Estimated Blood loss: 15 cc's. PROCEDURE NARRATIVE After explaining the risk, benefits and alternative options, informed consent was obtained from patie nt. Patient was brought to the cardiac Solvent Mixer and his right groin was prepped and draped in the us ual fashion. 20 cc of 2% lidocaine was infiltrated to the skin and subcutaneous tissues for local an esthesia. Arterial and venous accesses were obtained in the right common femoral artery and vein res pectively and 6 and 5 Martiniquais sheaths inserted. A temporary transvenous pacemaker was then advanced t hrough the 5 Martiniquais venous sheath and the tip was positioned in the right ventricular apex for backup pacing. 6 Martiniquais XB 3.5 guide catheter was then advanced through the arterial sheath, the left main coronary artery engaged and selective angiography was performed that confirmed the previously described 90% ca lcified stenosis in the midsegment of left anterior descending artery. This was crossed with a 0.014 inch run-through guidewire which was then exchanged over a 1.5 x 12 mm [employer] Emerge ball oon to the Viper wire. Multiple orbital atherectomy passes were then performed within the calcified lesion in the mid segment of LAD using CSI diamondback 1.25 coronary orbital atherectomy catheter. T his was then dilated with a 2.5 x 12 mm sapphire pro balloon. The lesion was then successfully treat ed with a 2.5 x 12 mm resolute Travis drug-eluting stent. Follow-up angiography showed resolution of t he lesion with JULIO-3 distal flow. The right coronary artery was then engaged with a 6 Martiniquais AL 0.75 guide catheter after initial attem pts to engage this with AL-1 were unsuccessful. Attempts to cross the proximal and mid segment lesio ns with the run-through guidewire were unsuccessful. These were finally crossed with a 0.014 inch Ch oice PT guidewire with backup support from the 1.5 x 12 mm balloon. Attempts to advance any balloons for guidewire exchange were unsuccessful due to heavy calcification. A Corsair catheter was then salgado ccessfully advanced across the lesions and the guidewire was exchanged to the Viper wire. Multiple o rbital atherectomy passes were then performed within the lesions in the mid and proximal segments of right coronary artery using the CSI 1.25 diamondback coronary orbital atherectomy catheter. Attempts to advance balloons across the mid segment lesion were again unsuccessful. A telescope inner cathet er was then advanced to the guide catheter for better backup support and then we were able to advance a 2.5 x 12 mm Euphora balloon across the lesions. Both the lesions were predilated with this balloo n following which the mid segment lesion was treated with a 3.0 x 18 mm resolute Calvin drug-eluting st ent. The proximal segment lesion was treated with a 4.0 x 15 mm resolute Travis drug-eluting stent. T his was then postdilated with a 4.5 x 12 mm [employer] NC Emerge noncompliant balloon. Follow -up angiography showed resolution of the lesions with good distal flow. Since patient remained hemodynamically stable, the temporary transvenous pacer wire was successfully removed. Hemostasis was then achieved using Angio-Seal and manual compression. Patient tolerated th e procedure well. There were no immediate complications. JULIO Flow JULIO Flow (Pre-Intervention): JULIO-3 JULIO Flow (Post-Intervention): JULIO-3 JULIO Flow JULIO Flow (Pre-Intervention): JULIO-1 JULIO Flow (Post-Intervention): JULIO-3 Conclusion 1. Severe two-vessel coronary artery disease involving left anterior descending and right coronary a rteries 2. Successful complex orbital atherectomy/PCI/drug-eluting stent placement to the left anterior desc ending and right coronary arteries 3. Insertion of temporary transvenous pacemaker with removal at the end of procedure Recommendations 1. Aspirin 325 mg daily for 1 month followed by 81 mg daily 2. Plavix 75 mg daily 3. Cardiovascular risk factor modification Signed by : Greer Hendricks, Electronically Approved : 03/11/2022 08:48:37
[2022-03-11 11:00] VITALS: BP 119/73
[2022-03-11 11:50] LABS: CALCIUM 8.8 mg/dL (8.5-10.1); CREATININE 1.2 mg/dL (0.7-1.3); GFR 58.3; POTASSIUM 3.8 mmol/L (3.5-5.1)
[2022-03-11] MEDS ORDERED: CLOP75TA PO (12:01)
[2022-03-11] MEDS ORDERED: ASPI325T11 PO (12:01)
--- NOTE | 2022-03-11 12:04 | DISCH ---
DISCHARGE INSTRUCTIONS Condition on Discharge Condition on Discharge: Stable Activity After Discharge Activity Instructions for Disc: Activity as tolerated Bathing Instructions: No Tub Bath until see (for 1 week) Lifting Instructions after Dis: No heavy lifting, No pulling or pushing, Do not lift >10 pounds Driving Instructions after Dis: Do not drive (for 5-7 days ) Weight Bearing Status after Di: Full weight bearing, As tolerated Diet after Discharge Diet after Discharge: Cardiac Diet Texture: Regular Checks after Discharge Checks after discharge: Check blood press - daily Contacting the DRRodolfo after DC Call your doctor for: Concerns you may have Treatment/Equipment after DC Adaptive Equipment Issued: None THAD ARAUZ APRN Mar 11, 2022 12:04
--- NOTE | 2022-03-11 12:05 | PDOC3 ---
Discharge Summary Visit Information Date of Admission: Mar 09, 2022 Date of Discharge: Mar 11, 2022 Admitting Diagnosis: Untable angina Admitting Diagnosis Comment: Unstable angina Hypertension Hyperlipidemia Final Diagnosis CAD Hypertension Hyperlipidemia Brief Hospital Course Allergies Allergies Coded Allergies Type Severity Reaction Last Updated Verified Itmrnex-SVJ-[id number] Reductase Inhibitor Allergy Intermediate cramping all over 03/09/22 Yes acetaminophen Allergy Intermediate BURNING OF THROAT 03/10/22 Yes Vital Signs Vital Signs Date Time Temp Pulse Resp B/P (MAP) Pulse Ox O2 Delivery O2 Flow Rate FiO2 03/11/22 11:00 97.9 83 16 119/73 (88) 94 Room Air 97.9 03/10/22 14:09 2.0 Lab Results Laboratory Tests Test 03/09/22 23:50 03/10/22 05:55 03/11/22 11:10 Troponin I High Sensitivity 11 ng/L (4-75) White Blood Count 6.1 x10^3/uL (4.0-11.0) Red Blood Count 5.06 x10^6/uL (4.30-5.70) Hemoglobin 15.5 g/dL (13.0-17.5) Hematocrit 45.6 % (39.0-53.0) Mean Corpuscular Volume 90 fL (79-100) Mean Corpuscular Hemoglobin 31 pg (25-35) Mean Corpuscular Hemoglobin Concent 34 g/dL (31-37) Red Cell Distribution Width 13.5 % (11.5-14.5) Platelet Count 215 x10^3/uL (140-400) Heparin Anti-Xa Act, Unfractionated 0.26 IU/mL (0.30-0.70) Sodium Level 136 mmol/L (136-145) Potassium Level 3.8 mmol/L (3.5-5.1) Chloride Level 102 mmol/L (98-107) Carbon Dioxide Level 26 mmol/L (21-32) Anion Gap 8 (6-14) Blood Urea Nitrogen 20 mg/dL (8-26) Creatinine 1.2 mg/dL (0.7-1.3) Estimated GFR (Cockcroft-Gault) 58.3 Glucose Level 102 mg/dL (70-99) Calcium Level 8.8 mg/dL (8.5-10.1) Laboratory Tests Test 03/11/22 11:10 Sodium Level 136 mmol/L (136-145) Potassium Level 3.8 mmol/L (3.5-5.1) Chloride Level 102 mmol/L (98-107) Carbon Dioxide Level 26 mmol/L (21-32) Anion Gap 8 (6-14) Blood Urea Nitrogen 20 mg/dL (8-26) Creatinine 1.2 mg/dL (0.7-1.3) Estimated GFR (Cockcroft-Gault) 58.3 Glucose Level 102 mg/dL (70-99) Calcium Level 8.8 mg/dL (8.5-10.1) Brief Hospital Course Mr. Davis is a 81 old male who presented for cardiac catheterization due to unstable angina. Left heart catheterization on 03/09/22 revealed severe two- vessel coronary artery disease involving left anterior descending and right coronary arteries with heavy calcifications. Due to heavy calcification, orbital atherectomy was required. Patient returned to the catheter finisher and inspector the following day and underwent successful complex orbital atherectomy/PCI/drug-eluting stent placement to the left anterior descending and right coronary arteries. Temporary transvenous pacemaker was inserted, with removal at the end of procedure. Patient tolerated procedure well and was monitored overnight without complications. Discharge instructions were reviewed. Patient seen and examined. Agree with BUSINESS SUPPORT COORDINATOR's assessment and plan s/p complex orbital atherectomy to PCI/STEVE to LAD and RCA in the setting of [place], stable and CP free Tele without any arrhythmias LVF normal on 2D echo Continue DAPT and current secondary prevention measures Follow up as scheduled Assessment Assessment Alert and oriented. NAD. Lungs CTA. Right groin and right radial arteriotomy sites were soft and clean. No hematoma present. Bilateral neurovascular status was intact. No LE edema. Discharge Information Condition at Discharge: Stable Disposition/Orders: D/C to Home Scheduled Ascorbic Acid (Vitamin C With Negar Hips) 1,000 Mg Tablet, 1,000 MG PO DAILY for rx, (Reported) Entered as Reported by: JOSHUA STYLES on 03/09/22 110 Last Action: New Order on 03/09/22 110 by JOSHUA STYLES Aspirin (Aspirin Ec) 325 Mg Tablet., 1 TAB PO DAILY for CAD for 30 Days, #30 Ref 0 Take 325mg daily 1 month then 81 mg thereafter. Prescribed by: THAD ARAUZ APRN on 03/11/22 1201 Clopidogrel Bisulfate (Clopidogrel) 75 Mg Tablet, 1 TAB PO DAILY for CAD for 30 Days, #30 Ref 3 Prescribed by: THAD ARAUZ APRN on 03/11/22 1201 Ezetimibe (Zetia) 10 Mg Tablet, 10 MG PO DAILY, (Reported) Entered as Reported by: Merly Richmond on 07/08/151357 Last Action: Reviewed on 03/09/221104 by JOSHUA STYLES Meclizine Hcl (Meclizine Hcl) 25 Mg Tablet, 1 TAB PO PRN TID for rx, #30 (Reported) Entered as Reported by: JOSHUA STYLES on 03/09/221104 Last Action: New Order on 03/09/221104 by JOSHUA STYLES Multivitamin (Multi Vitamin Daily) 1 Each Tablet, 1 EACH PO DAILY for supplement, (Reported) Entered as Reported by: BEATRIZ [place] on 01/21/211943 Last Action: Reviewed on 03/09/221104 by JOSHUA STYLES Niacin (Niaspan) 500 Mg Tab.er.24h, 500 MG PO HS, (Reported) Entered as Reported by: Merly Richmond on 07/08/151357 Last Action: Reviewed on 03/09/221104 by JOSHUA STYLES Pantoprazole Sodium (Pantoprazole Sodium ) 40 Mg Tablet.dr, 40 MG PO DAILYAC for GERD, (Reported) Entered as Reported by: JOSHUA STYLES on 03/09/221104 Last Action: New Order on 03/09/221104 by JOSHUA STYLES Quinapril Hcl (Quinapril Hcl) 40 Mg Tablet, 40 MG PO DAILY for blood pressure, (Reported) Entered as Reported by: Merly Richmond on 07/08/151357 Last Action: Reviewed on 03/09/221104 by JOSHUA STYLES Sucralfate (Carafate) 1 Gm Tablet, 1 TAB PO QID for rx for 30 Days, #120 Ref 0 (Reported) Entered as Reported by: JOSHUA STYLES on 03/09/221104 Last Action: New Order on 03/09/221104 by JOSHUA STYLES Ubidecarenone (Coq-10) 100 Mg Capsule, 200 MG PO DAILY for rx, (Reported) Entered as Reported by: JOSHUA STYLES on 03/09/221104 Last Action: New Order on 03/09/221104 by JOSHUA STYLES Scheduled PRN Nitroglycerin (Nitrostat) 0.4 Mg Tab.subl, 0.4 MG SL PRN Q5MIN PRN for CHEST PAIN, (Reported) Entered as Reported by: JOSHUA STYLES on 03/09/221104 Last Action: New Order on 03/09/221104 by JOSHUA STYLES Discontinued Medications Aspirin (Aspir 81) 81 Mg Tablet.dr, 81 MG PO QODAY for heart healthy, (Reported) Entered as Reported by: Merly Richmond on 07/08/15 2838 Last Action: Reviewed on 03/09/221104 by JOSHUA STYLES Patient Instructions Patient Instructions GENERAL INSTRUCTIONS: 1. Your dressing should be removed prior to leaving the hospital. 2. It is OK to shower the day after your procedure. 3. If you received stents, be sure to carry your stent information card with you in your wallet/purse at all times. 4. Call the office immediately at [phone] if you notice any fever or if there is redness, worsening tenderness/pain, increased bruising, or drainage from the puncture site. 5. Should you have bleeding from the site, lie down immediately & put pressure on the site. The pressure should be hard enough to stop the bleeding. Have the nearest person call 911. DO NOT try to drive to the ER with active bleeding. 6. If you notice a change in color, coolness to touch, or loss of feeling in the affected extremity, come to the emergency room. Please have someone drive you or call 911 if no one is available. DO NOT drive yourself. 7. If you normally take glucophage (metformin), please do not take this medicine for 48 hours following your procedure. 8. DO NOT STOP TAKING YOUR PLAVIX OR ASPIRIN UNLESS IT IS CLEARED BY A AIR INTERCEPT CONTROLLER SUPERVISOR OF YOUR ACADEMIC TUTOR AT OUR OFFICE. 9. QUIT SMOKING: the [place] [employer], [employer], & [employer] have cessation resources available on their websites 10. Please have someone available to drive you home from the hospital as you may be limited by sedation medications given during the procedure. Femoral (Groin) access: 1. Do no lifting, pushing, pulling, bending, stooping, or recurrent stair climbing for 3 days following your procedure. 2. Once past the first 3 days, do not do any HEAVY exertion or lifting for one week following the procedure. No gym workouts, running, lifting greater than a gallon of milk, etc 3. Do not submerge in bath or pool for one week. OK to drive 3 days following your procedure, but if going long distance, do not go alone & take hourly breaks to get out of car and walk around. Radial Artery (Wrist) access: 1. No pushing, pulling, lifting, typing, or anything that requires repetitive use/movement of the affected wrist for 3 days following your procedure. 2. OK to drive the day following your procedure. (This is because of effects of sedating medications.) Call the office at [phone] for any questions or concerns. Justicifation of Admission Dx: Justifications for Admission: Justification of Admission Dx: Yes Comments: Unstable angina CAD THAD ARAUZ APRN Mar 11, 2022 12:05 GREER ROBERTS MD Mar 11, 2022 18:52
--- NOTE | 2022-03-11 13:11 | NUR ---
Discharge Note: PT DISCHARGED HOME WITH SELF CARE. PT LEFT FACILITY VIA PRIVATE VEHICLE 1245. PT STABLE AND ALERT UPON DISCHARGE. PT PIV REMOVED FROM L FA WITHOUT COMPLICATIONS, BANDAGE APPLIED. PT TELE MONITOR REMOVED. PT EDUCATED ABOUT DISCHARGE INSTRUCTIONS, DISCHARGE MEDICATIONS, AND FOLLOW-UP CARE INSTRUCTIONS. NO CONCERNS VOICED AT THIS TIME. PT LEFT WITH ALL PERSONAL BELONGINGS. MARIO ARREGUIN Discharge instructions and discharge home medications reviewed with Patient and a copy given. All questions have been answered and understanding verbalized.
[2022-03-12] MEDS ORDERED: PRED20TA PO (11:39)
== END 2022-03-11 12:45 | disposition home or self-care (01) | DRG 247 ==
LOC: CCL 10:22 → 6 SOUTH 13:22
PROVIDERS: ADMIT Internal Medicine Cardiovascular Disease; ATTEND Internal Medicine Cardiovascular Disease
PROC: B2111ZZ Fluoroscopy of Multiple Coronary Arteries using Low Osmolar Contrast (ICD-10-PCS; principal; 2022-03-09)
PROC: 4A023N7 Measurement of Cardiac Sampling and Pressure, Left Heart, Percutaneous Approach (ICD-10-PCS; 2022-03-09)
PROC: 027034Z Dilation of Coronary Artery, One Artery with Drug-eluting Intraluminal Device, Percutaneous Approach (ICD-10-PCS; 2022-03-10)
PROC: 02C03Z7 Extirpation of Matter from Coronary Artery, One Artery, Orbital Atherectomy Technique, Percutaneous Approach (ICD-10-PCS; 2022-03-10)
PROC: B2111ZZ Fluoroscopy of Multiple Coronary Arteries using Low Osmolar Contrast (ICD-10-PCS; 2022-03-10)
PROC: 4A023N7 Measurement of Cardiac Sampling and Pressure, Left Heart, Percutaneous Approach (ICD-10-PCS; 2022-03-10)
PROC: 5A1223Z Performance of Cardiac Pacing, Continuous (ICD-10-PCS; 2022-03-10)
DX: I25.110 Atherosclerotic heart disease of native coronary artery with unstable angina pectoris (principal); E78.5 Hyperlipidemia, unspecified; I10 Essential (primary) hypertension; K21.9 Gastro-esophageal reflux disease without esophagitis; Z79.02 Long term (current) use of antithrombotics/antiplatelets; Z79.82 Long term (current) use of aspirin; Z88.6 Allergy status to analgesic agent
CPT/HCPCS: 33210; 92933; 93458; G0269; 36415; 80048; 84484; 85027; 85520; 85610; 93005; 93306; 99152; 99153; C1725; C1769; C1874; C1894; J0583; J1200; J1644; J2250; J3010; J3490; Q9967; C8929; G0378

== ENCOUNTER 2022-03-12 08:23 | Emergency (ER) | payer MEDICARE, BC ==
[~2022-03-12] VITALS: Ht 172.7 cm; Wt 85.5 kg
[~2022-03-12 08:23] MED LIST changes: +ASPI325T11 PO; +CLOP75TA PO; +MECL-75 PO; +NITR0.4T24 SL; +PANT40TA77 PO; +SUCR1TAB35 PO; +UBID100C26 PO; +[UNRECOGNIZED DRUG - CODE] PO
[2022-03-12] MEDS ORDERED: DEXAMETHASONE 4 MG TABLET PO ONE (09:30)
--- NOTE | 2022-03-12 09:31 | PHYS DOC ---
Past Medical History Past Medical History: CAD Past Surgical History: Knee Replacement, Other Additional Past Surgical Histo: cardiac cath Smoking Status: Never Smoker Alcohol Use: None General Adult EDM: Chief Complaint: FOOT INJURY PAIN HPI: HPI: Patient is a 81 year old M who presents to the ED c/o L foot pain onset yesterday. Pt states he noticed mild foot pain yesterday that has gotten worse. He states last night before he went to the bed he noticed slight redness. He woke woke up in the middle of the night with worsening pain and now he feels like his foot is on fire. Pt was just discharged yesterday after having a cardiac catheterization and 3 stents placed. No other complaints at this time Review of Systems: Review of Systems: Constitutional: Denies fever or chills Eyes: Denies redness or eye pain HENT: Denies nasal congestion or sore throat Respiratory: Denies cough or shortness of breath Cardiovascular: Denies chest pain or palpitations GI: Denies abdominal pain, nausea, or vomiting : Denies dysuria or hematuria Musculoskeletal: Denies back pain or joint pain, Reports L foot pain Integument: Denies rash or skin lesions Neurologic: Denies headache, focal weakness or sensory changes Complete systems were reviewed and found to be within normal limits, except as documented in this note. Heart Score: C/O Chest Pain: N/A Allergies: Allergies: Allergies Coded Allergies Type Severity Reaction Last Updated Verified [id number] Reductase Inhibitor Allergy Intermediate cramping all over 03/09/22 Yes acetaminophen Allergy Intermediate BURNING OF THROAT 03/10/22 Yes Physical Exam: PE: Constitutional: Well developed, well nourished, no acute distress, non-toxic appearance HENT: Normocephalic, atraumatic Eyes: PERRL, EOMI, conjunctiva normal, no discharge Neck: Normal range of motion, no tenderness, supple Lungs & Thorax: No respiratory distress, equal chest rise and fall Abdomen: Soft, no tenderness Skin: Warm, dry, no erythema, no rash Back: No tenderness, no CVA tenderness Extremities:, ROM intact, L foot - extensor surface small area of redness, warmth, and tenderness, dp 2+/4 bilaterally Neurologic: Alert and oriented X 3, normal motor function, normal sensory function, no focal deficits noted Psychologic: Affect normal, judgment normal Current Patient Data: Vital Signs: Vital Signs Date Time Temp Pulse Resp B/P (MAP) Pulse Ox O2 Delivery O2 Flow Rate FiO2 03/12/22 08:51 98.4 87 18 131/75 (93) 98 Room Air 98.4 EKG: EKG: [] Radiology/Procedures: Radiology/Procedures: PROCEDURE: FOOT LEFT 3V Exam: XR FOOT_LEFT 3 VIEWS History: Pain, erythema, redness and swelling top of foot. Comparison: None. Findings: Osseous mineralization is normal. No acute fracture or dislocaton. No aggressive osseous erosive process. Mild degenerative changes of the dorsal midfoot and at the first metatarsophalangeal joint. Question mild soft tissue swelling at the dorsal midfoot. Atherosclerotic vascular calcifications of the ankle. Impression: 1. No acute osseous abnormality in the left foot. Electronically signed by: Chandana Christopher MD (03/12/2022 10:15 AM) [id number] Course & Med Decision Making: Course & Med Decision Making Pt is an 81 year old male who presents with L foot pain LABS/Uric acid/XR ordered. Pertinent Labs and Imaging studies reviewed. (See chart for details) [] Dragon Disclaimer: Dragon Disclaimer: This electronic medical record was generated, in whole or in part, using a voice recognition dictation system. Splinting Splinting : Location: Left foot Pre-Made Type: Post op shoe Pre-Proc Neuro Vasc Exam: normal Post-Proc Neuro Vasc Exam: normal, unchanged from pre-exam Departure Departure Impression: Primary Impression: Gout Qualified Codes: M10.9 - Gout, unspecified Disposition: 01 HOME / SELF CARE / HOMELESS Condition: STABLE Referrals: [facility] (PCP) AMANDA GREENE DPGallito Patient Instructions: Gout, [id number] Scripts Prednisone (PREDNISONE) 20 Mg Tablet 2 TAB PO DAILY for 4 Days, #8 TAB Start this medication tomorrow 03/13/2022. Prov: VENTURA TINEO DO 03/12/22 VENTURA TINEO DO Mar 12, 2022 09:31
--- NOTE | 2022-03-12 10:17 | RAD ---
Exam: XR FOOT_LEFT 3 VIEWS History: Pain, erythema, redness and swelling top of foot. Comparison: None. Findings: Osseous mineralization is normal. No acute fracture or dislocaton. No aggressive osseous erosive proc ess. Mild degenerative changes of the dorsal midfoot and at the first metatarsophalangeal joint. Ques tion mild soft tissue swelling at the dorsal midfoot. Atherosclerotic vascular calcifications of the ankle. Impression: 1. No acute osseous abnormality in the left foot. Electronically signed by: Chandana Christopher MD (03/12/2022 10:15 AM) [id number]
[2022-03-12 10:29] LABS: BASO # 0.1 x10^3/uL (0.0-0.2); BASO % 1 % (0-3); EOS # 0.1 x10^3/uL (0.0-0.7); EOS % 1 % (0-3); HEMATOCRIT 44.8 % (39.0-53.0); HEMOGLOBIN 15.6 g/dL (13.0-17.5); LYMPH # 1.3 x10^3/uL (1.0-4.8); LYMPH % 18 % (24-48); MEAN CORPUSCULAR HEMOGLOBIN 31 pg (25-35); MEAN CORPUSCULAR HGB CONC 35 g/dL (31-37); MEAN CORPUSCULAR VOLUME 89 fL (79-100); MONO # 0.6 x10^3/uL (0.0-1.1); MONO % 9 % (0-9); NEUT # 4.9 x10^3/uL (1.8-7.7); NEUT % 71 % (31-73); PLATELET COUNT 206 x10^3/uL (140-400); RED BLOOD COUNT 5.04 x10^6/uL (4.30-5.70); RED CELL DISTRIBUTION WIDTH 13.4 % (11.5-14.5)
[2022-03-12] MEDS ORDERED: PRED20TA PO (11:39)
[2022-03-12 11:47] VITALS: BP 131/75
== END 2022-03-12 11:56 | disposition home or self-care (01) ==
LOC: ER 08:23
DX: M10.9 Gout, unspecified (principal); I25.10 Atherosclerotic heart disease of native coronary artery without angina pectoris; Z88.6 Allergy status to analgesic agent; Z91.041 Radiographic dye allergy status
CPT/HCPCS: 36415; 73630; 83605; 84550; 85025; 99284